=== PATIENT | female | born 1945 | race Caucasian/White ===

== ENCOUNTER 2018-01-04 06:46 | Day surgery (SDC) | payer MEDICARE, OTHER ==
[~2018-01-04 06:46] MED LIST: MIDAZOLAM INJ 2 MG/2 ML VIAL (J2250) As Ordered; fentaNYL 100 MCG/2 ML INJECTION (J3010) As Ordered
[2018-01-04] MEDS: PROPARACAINE 0.5% OPHTH SOL 15ML OS (07:46)
[2018-01-04] MEDS: OFLOXACIN 0.3 % (OCUFLOX) OPTH SOL 5ML OS (07:46)
[2018-01-04] MEDS: PILOCARPINE 1% OPHTH SOLN 15 ML OS (07:46)
[2018-01-04 07:51] LABS: BEDSIDE GLUCOSE 127 MG/DL (83-110)
[2018-01-04] MEDS: POVIDONE-IODINE 5% OPHTH PREP SOL 30ML As Ordered (08:47)
[2018-01-04] MEDS: DUOVISC (0.50ML VISCOAT/0.55ML PROVISC) OPHTH KIT As Ordered (09:08)
[2018-01-04] MEDS: TOBRADEX OPHTH OINT 3.5 GM As Ordered (09:08)
[2018-01-04] MEDS: ACETYLCHOLINE OPHTH SOLN 1% 2ML (MIOCHOL-E) As Ordered (09:08)
[2018-01-04] MEDS ORDERED: fentaNYL 100 MCG/2 ML INJECTION (J3010) As Ordered (09:14)
[2018-01-04] MEDS ORDERED: MIDAZOLAM INJ 2 MG/2 ML VIAL (J2250) As Ordered (09:18)
[2018-01-04] MEDS ORDERED: LABETALOL HCL 100 MG/20 ML VIAL As Ordered (10:04)
[2018-01-04] MEDS ORDERED: ACETAMINOPHEN TAB 650MG DOSE (2X325MG) PO (10:15)
[2018-01-04] MEDS ORDERED: ONDANSETRON 4MG/2ML VIAL (J2405) IV (10:15)
== END 2018-01-04 11:03 | disposition home or self-care (01) ==
LOC: M SDC 06:46
DX: T86.841 Corneal transplant failure (principal); H18.20 Unspecified corneal edema; Z96.1 Presence of intraocular lens; E11.9 Type 2 diabetes mellitus without complications; I10 Essential (primary) hypertension; Z79.899 Other long term (current) drug therapy; Z79.84 Long term (current) use of oral hypoglycemic drugs; Z78.0 Asymptomatic menopausal state
CPT/HCPCS: 65756

== ENCOUNTER → 2021-04-14 | Outpatient (CLI) | payer MEDICARE, OTHER ==
[~2021-04-14] MED LIST changes: +CHLO25TA PO; +FURO20TA2 PO; +GLIP5TAB8 PO; +LISI20TA33 PO; +METF10004 PO; -MIDAZOLAM INJ 2 MG/2 ML VIAL (J2250) As Ordered; -fentaNYL 100 MCG/2 ML INJECTION (J3010) As Ordered
== END ==
LOC: M LABSMTC 13:02
PROVIDERS: ATTEND Anesthesiology
DX: Z01.818 Encounter for other preprocedural examination (principal); Z11.52 Encounter for screening for COVID-19

== ENCOUNTER 2021-04-19 07:54 | Day surgery (SDC) | payer MEDICARE, OTHER ==
[~2021-04-19] VITALS: Ht 157.5 cm; Wt 83.4 kg
[~2021-04-19 07:54] MED LIST changes: +OFLOXACIN 0.3 % (OCUFLOX) OPTH SOL 5ML OS ONE; +PHENYLEPHRINE 2.5% OPHTH SOL 2ML OS ONE; +PROPARACAINE 0.5% OPHTH SOL 15ML OS ONE; +TROPICAMIDE 1% OPHTH SOLN 2ML OS ONE
[2021-04-19] MEDS ORDERED: BALANCED SALT IRRIGATION SOLUTION 500ML BAG (FOR OR EYE MACHINE) As Ordered ONE (09:39)
[2021-04-19] MEDS ORDERED: POVIDONE-IODINE 5% OPHTH PREP SOL 30ML As Ordered ONE (09:39)
[2021-04-19] MEDS ORDERED: ACETYLCHOLINE OPHTH SOLN 1% 2ML (MIOCHOL-E) As Ordered ONE (09:39)
[2021-04-19] MEDS ORDERED: TOBRADEX OPHTH OINT 3.5 GM As Ordered ONE (09:39)
[2021-04-19] MEDS ORDERED: DUOVISC (0.50ML VISCOAT/0.55ML PROVISC) OPHTH KIT As Ordered ONE (09:39)
[2021-04-19] MEDS ORDERED: TRYPAN BLUE 0.06 % 2.25 ML OPHTH SYR (VISIONBLUE) As Ordered ONE (09:39)
[2021-04-19] MEDS ORDERED: fentaNYL 100 MCG/2 ML INJECTION (J3010) As Ordered ONE (10:01)
[2021-04-19] MEDS ORDERED: MIDAZOLAM INJ 2MG/2ML VIAL (J2250 PER 1MG) As Ordered ONE (10:01)
[2021-04-19] MEDS ORDERED: propofoL 200 MG/20 ML VIAL As Ordered ONE (10:23)
[2021-04-19 13:15] VITALS: BP 186/81
--- NOTE | 2021-04-20 14:14 | RO ---
OPERATIVE NOTE DATE OF OPERATION: 04/19/2021 PREOPERATIVE DIAGNOSIS: 1. Corneal edema. 2. Failed corneal transplant graft. 3. Pseudophakia. POSTOPERATIVE DIAGNOSIS: 1. Corneal edema. 2. Failed corneal transplant graft. 3. Pseudophakia. PROCEDURE: 1. Descemet's membrane endothelial keratoplasty of the left eye. ANESTHESIA: Local with MAC. SPECIMENS: 1. Patient's cornea failed graft. 2. Donor cornea. PROCEDURE: The patient was seen and identified and consents were reviewed. The patient's eye was marked considering the patient's eye was marked and the surgical eye was marked. The patient received topical antibiotics, anesthetics and dilating drops to the surgical eye and the patient was transferred to the operating room. The eye was prepped and draped in sterile fashion and the upper eyelid and lower eyelids were isolated with Tegaderm. A wire lid speculum was placed. Using a 0.6 mm paracentesis incision was made superiorly and inferiorly. Mydriacyl was injected into the anterior chamber and then a disperse of viscoelastic. A temporal 2.4 mm incision was made. Using a reverse Sinskey hook, the failed corneal graft was detached from the host cornea and removed from the temporal incision and then was removed with Utrata forceps and this was sent to pathology. At that time, irrigation and aspiration were used to remove all viscoelastic from the anterior chamber. BSS was used to reinflate the anterior chamber and then the temporal incision was hydrated. Attention was then turned to the donor cornea. The donor cornea was a free-floating DMET graft. It was poured into a Donna dish filled with BSS. The graft was aspirated into the back end of a Geuder glass cannula. Using a 3 mL syringe filled with BSS, the graft was transferred to an 8 mm punch block and this was restained with Trypan blue for two minutes. At that time, the Trypan blue was washed out. The graft was aspirated into the back end of a Geuder glass cannula again and then a second BSS cannula filled with BSS was used to advance the graft to the distal end of the Geuder glass cannula. The glass cannula was placed inside. Attention was then turned back to the patient. The Geuder glass cannula was placed into the temporal 2.4 mm incision. The bevel was placed up. The graft was then gently injected into the anterior chamber. At temporal 10-0 nylon suture was placed. Gentle tapping motions were used to unravel the graft until the S sign was visible at the appropriate orientation and centered. Air was injected beneath the transplanted tissue, depressing the edge of the host cornea. The graft was left in place with a full air fill for approximately two minutes. At that time, the bubble was reduced to approximately 80% so that the bubble was mobile and clearing the inferior paracentesis. A temporal 10-0 nylon suture was buried. ReSure sealant was placed over the superior and inferior paracentesis incisions. A contact lens was placed over the surface of the cornea. The wire lid speculum was removed. The patient was discharged to the PACU in stable condition with instructions to lay flat for approximately one hour.
== END 2021-04-19 13:15 | disposition home or self-care (01) ==
LOC: M SDC 07:54
PROVIDERS: ATTEND Ophthalmology
DX: H18.20 Unspecified corneal edema (principal); T86.8412 Corneal transplant failure, left eye; E11.9 Type 2 diabetes mellitus without complications; I10 Essential (primary) hypertension; I25.10 Atherosclerotic heart disease of native coronary artery without angina pectoris; K21.9 Gastro-esophageal reflux disease without esophagitis; R01.1 Cardiac murmur, unspecified; T88.59XD Other complications of anesthesia, subsequent encounter; Z78.0 Asymptomatic menopausal state; Z79.899 Other long term (current) drug therapy; Z96.1 Presence of intraocular lens
CPT/HCPCS: 65756; 87070; 87075; 87102; 87205; 88300; J2250; J3010; V2785